=== PATIENT | female | born 1945 | race Caucasian/White ===

== ENCOUNTER 2022-03-17 10:34 | Day surgery (SDC) | payer MEDICARE, OTHER ==
[2022-03-17] MEDS ORDERED: Lactated Ringers 1,000 ML IV SCH (11:30)
[2022-03-17] MEDS ORDERED: CEFAZOLIN 2 GM-D5W BAG** 2 GM/50 ML ML IV SCH (11:30)
[2022-03-17 11:53] LABS: ALBUMIN 4.2 g/dL (3.5-5.0); ALKALINE PHOSPHATASE 69 U/L (38-126); ANION GAP 8.2 MEQ/L (5-15); BLOOD UREA NITROGEN 20 mg/dL (7-17); CHLORIDE 107 mmol/L (98-107); Calcium 9.2 mg/dL (8.4-10.2); Carbon Dioxide 29 mmol/L (22-30); EST GLOMERULAR FILTRATION RATE > 60.0 ML/MIN; Glucose 93 mg/dL (74-106); Potassium 3.7 mmol/L (3.5-5.1); SGOT/AST 30 U/L (14-36); SGPT/ALT 7 U/L (0-35); SODIUM 141 mmol/L (137-145); Total Protein 6.5 g/dL (6.3-8.2)
[2022-03-17] MEDS ORDERED: BUPIVACAINE 0.5% VIAL IJ ONE (12:10)
[2022-03-17] MEDS ORDERED: XYLOCAINE 1% HCL 20 ML MDV ONE (12:10)
[2022-03-17] MEDS ORDERED: Lactated Ringers 1,000 ML IV ONE (12:10)
[2022-03-17] MEDS ORDERED: Versed 2 MG/2 ML Injection IV ONE (12:26)
[2022-03-17] MEDS ORDERED: Zemuron 100 MG/10 ML ONE ×2 (12:59→14:47)
[2022-03-17] MEDS ORDERED: SUBLIMAZE 100 MCG/2 ML ONE ×2 (12:59→14:54)
[2022-03-17] MEDS ORDERED: DIPRIVAN 200 MG/20 ML IV ONE (12:59)
[2022-03-17] MEDS ORDERED: BRIDION 200MG/2ML IV ONE (14:57)
--- NOTE | 2022-03-17 14:58 | XRAY ---
Indication: Left foot hardware removal. Arthrodesis hallux. Hammertoe correction. Intraoperative fluoroscopy provided for 1 minute 19 seconds. 13 digital spot images submitted for interpretation ultimately demonstrates 3rd metatarsal head [place] procedure with intact screw. Fusion of 1st-4th phalanges with intact screws traversing digits. Correlate with intraoperative findings/report.
--- NOTE | 2022-03-17 16:33 | XRAY ---
1minute and 19 seconds fluoroscopy time in surgery for hardware replacement of the 4th digit and hammertoe correction of the left foot.
[2022-03-17 16:46] VITALS: BP 162/98; PULSE 72; O2SAT 96
--- NOTE | 2022-03-18 08:54 | OP ---
SURGERY DATE/TIME: 03/17/2022 1255 PREOPERATIVE DIAGNOSES: 1) Left foot pain. 2) Hallux interphalangeal joint contracture. 3) Hammer toes digits 3, 4 and 5. 4) Elongated metatarsal #3. 5) Painful retained hardware fourth digit. POSTOPERATIVE DIAGNOSIS: 1) Left foot pain. 2) Hallux interphalangeal joint contracture. 3) Hammer toes digits 3, 4 and 5. 4) Elongated metatarsal #3. 5) Painful retained hardware fourth digit. PROCEDURES: 1) Left interphalangeal joint fusion left hallux. 2) Third metatarsal rosalinda. 3) Third hammertoe correction with proximal interphalangeal joint arthrodesis 4) Fourth digit hardware removal. 5) Hammer toe correction fifth digit. 6) Derotational arthroplasty of fifth digit. SURGEON: He Torres DPM. LATHE WINDER: None. ANESTHESIA: General plus a postoperative local. See injectables for details. HEMOSTASIS: Ankle tourniquet set 250 mm of Mercury for 77 total tourniquet time. ESTIMATED BLOOD LOSS: Less than 5 cc. MATERIALS: One - 4.0 x 40 variable pitch compression screw Kane. One - 2.0 x 14 mm headed partially threaded cannulated screw. One - 2.5 x 30 VPC screw. One - 2.5 x 30 VPC screw. 4-0 Monocryl, 3-0 Nylon. INJECTABLES: 30 cc of a 1:1 mixture of 1% lidocaine plain and 0.5% bupivacaine plain injected in an ankle block-type to the left ankle. PATHOLOGY: Hardware fourth digit and bone. INDICATION FOR SURGERY: Judy is a very pleasant 77-year-old female who presented to my practice with a significant amount of pain with ambulation to her left foot due to a previous surgical intervention for her hammer toes that left her problem not completely corrected. She did have the second, third, fifth hammer toes corrected which resulted in pain with ambulation to the fourth digit. This pain was so severe and after discussion with the patient in regards to the options, the patient was willing to have an amputation of the digit. Discussion with patient in regards to the surgery and need for correction. The patient understands all of the risks, complications and benefits of surgical intervention at this time. She understands that there are no guarantees as to the outcome of the surgical intervention. Plenty of time was allowed for the patient to ask questions which were answered to the patients apparent satisfaction. It is with that we decided to proceed. DESCRIPTION OF PROCEDURE AND FINDINGS: The patient was brought into the OR and placed on the OR table in the supine position. At this time adequate general anesthesia was administered to the patient and the patient was sedated. An ankle tourniquet was applied to the patient's left ankle and the tourniquet was set to 350 mm of Mercury. At this time, a well-padded bump was placed under the ipsilateral hip and the surgical extremity was prepped and draped in the typical sterile fashion and lowered onto the surgical field. At this time attention was directed to the dorsal aspect of the proximal interphalangeal joint where an incision was made with the resting skin tension lines along the distal interphalangeal joint of the hallux. At this time, the joint was identified and gentle retraction was applied. The sagittal saw was utilized to resect bone off of the proximal phalangeal head as well as the distal phalangeal base until the digit was corrected of its frontal plane and varus angulation. At this time, once the cuts were made this was checked under fluoroscopic guidance and a 4.0 mm x 40 mm headless compression screw was introduced from the distal tip into the proximal phalanx. At this time, this was checked under fluoroscopy and deemed to be in an adequate position. At this time, attention then was directed to the third metatarsal where an incision was made over the dorsal aspect of the metatarsal and down the linear aspect of the proximal phalanx down to the proximal phalangeal joint. At this time, the extensor tendon was identified and a lengthening Z-plasty was performed to the extensor digitorum longus this was gently retracted out of the way with mini curved hemostats and the third metatarsophalangeal joint was identified. Following this a sagittal saw was utilized to make an angulated cut at the dorsal aspect of the third metatarsal perpendicular to the weight bearing surface. At this time the metatarsal head was distracted posteriorly and proximally until the toe sat in a normal angulation relative to the others. At this time, temporary fixation was introduced from the dorsal aspect of the third metatarsal. A 2.0 x 14 mm partially threaded headed screw was introduced from the dorsal aspect capturing the fragment and this was checked under fluoroscopy and deemed to be in an adequate position. At this time, direction was directed to the distal interphalangeal joint where the bone was resected from previous attempt at fusion and checked under fluoroscopy to be deemed in adequate position and then a 2.5 x 30 mm VPC Kane screw was introduced from the distal tip until the compression occurred through the proximal interphalangeal joint. At this time attention was directed to the fourth digit where an incision was made over the dorsal aspect of the proximal interphalangeal joint. At this time under fluoroscopic guidance, the distal aspect of the implant was identified and a bone cut was made just distal to the implant. Another cut was made at the middle of the implant where there was a significant dell in the implant diameter. The remaining bone was shaved off utilizing sagittal saw and utilizing a rongeur the implant was removed. There was a small bone bridge that was resected at the medial aspect of the site. Following this, a K-wire was retrograded out of the distal tip of the toe and then advanced into the proximal phalanx through this it did appear that there was adequate length and good enough compression between the joints in order to introduce an additional 2.5 mm x 30 mm VPC screw. This was checked under fluoroscopy and deemed to be in an adequate position. At this time, a skin plasty was performed over the fifth digit in attempts of a derotational arthroplasty. The joint was then resected out and a closure of the derotational skin plasty was performed taking the toe out of its abductor varus rotation. At this time final shots were taken of the foot under fluoroscopy. Copious amounts of sterile saline were utilized to flush the surgical sites. Subcutaneous closure was performed utilizing 4-0 Monocryl in a buried simple-type fashion. Following this, 3-0 Vicryl was utilized to coapt the skin edges in a horizontal mattress-type fashion. Following this dressing consisting of Betadine, Adaptic, 4x4, Kerlix and VALERIE were applied to the patients left lower extremity. The tourniquet was dropped prior to application of the dressing. Total tourniquet time was 77 minutes. Prior to the dressing being applied, an ankle block consisting of 30 cc of a 1:1 mixture 1% lidocaine plain and 0.5% bupivacaine plain was injected in an ankle block-type fashion to the left ankle. The patient was then was then reversed from anesthesia and returned to the postoperative anesthesia care unit with vital signs stable and vascular status intact. The patient handled the procedure as well as the anesthesia without significant complication. Postoperative orders as indicated in the patient's discharge chart.
== END 2022-03-17 16:45 | disposition home or self-care (01) ==
LOC: SDC 10:34
PROVIDERS: ATTEND Podiatrist Foot & Ankle Surgery
DX: M24.575 Contracture, left foot (principal); M20.42 Other hammer toe(s) (acquired), left foot; M77.42 Metatarsalgia, left foot; M79.672 Pain in left foot; T84.84XA Pain due to internal orthopedic prosthetic devices, implants and grafts, initial encounter
CPT/HCPCS: 20680; 28285; 28308; 28755; 36415; 73620; 76000; 80053; C1713; 99100; J0690; J2250; J2704; J3010